=== PATIENT | female | born 1980 | race Caucasian/White ===

== ENCOUNTER 2017-01-27 10:06 | Emergency (ER) | payer MEDICAID ==
[~2017-01-27] VITALS: Ht 162.6 cm; Wt 66.0 kg
[2017-01-27 10:23] VITALS: Ht 162.6 cm; Wt 66.0 kg
--- NOTE | 2017-01-27 11:18 | ERD ---
ER Documentation Chief Complaint Date/Time DATE: 01/27/17 Chief Complaint Referred by MUNICIPAL ENGINEER for OB evaluation, ultrasound and laboratory testing HPI The patient is a 36-year-old female, A0, who presents to the Emergency Department for confirmation of viability. The patient reports that her last menstrual period was 11/23/2016, and she believes that she is approximately 8 weeks . This morning she presented to her MUNICIPAL ENGINEER's office, Dr. Cristin Gerardo, for routine evaluation. Ultrasound imaging was performed, but no heart tones were noted on ultrasound. The patient reports that approximately four weeks ago, while at a previous routine visit, she had an ultrasound performed that noted presence of a small sac, but no pole or yolk sac. When the ultrasound was performed today, she was noted to have the same findings, with no progression or further development. Therefore, she was referred to the ED for further evaluation, laboratory testing , ultrasound imaging for confirmation of viability. The patient denies dysuria, hematuria or flank pain. Denies vaginal bleeding or new vaginal discharge. Denies fevers, chills, nausea, vomiting, abdominal pain or pelvic pain. Denies headache, dizziness, weakness. ROS All systems reviewed and are negative except as per history of present illness. Allergies Allergies: Coded Allergies: No Known Allergy (Unverified , 01/27/17) PMhx/Soc Medical and Surgical Hx: pt denies Medical Hx History of Surgery: Yes (csection) Anesthesia Reaction: No Hx Neurological Disorder: No Hx Respiratory Disorders: No Hx Cardiac Disorders: No Hx Psychiatric Problems: No Hx Miscellaneous Medical Probl: No Hx Alcohol Use: No Hx Substance Use: No Hx Tobacco Use: No Smoking Status: Never smoker Physical Exam Vitals Vital Signs Date Time Temp Pulse Resp B/P Pulse Ox O2 Delivery O2 Flow Rate FiO2 01/27/17 13:39 99.7 70 16 122/52 100 Room Air 01/27/17 10:23 99.7 77 16 126/58 100 Physical Exam GENERAL: Well-developed, well-nourished, female, in no acute distress. HEENT: Head is normocephalic, atraumatic. No scleral pallor or icterus. Pupils equal, round and reactive to light. Conjunctiva pink. Moist mucous membranes. NECK: Supple. Full range of motion. RESPIRATORY: Lungs are clear to auscultation bilaterally. Equal breath sounds. Normal expiratory effort. CARDIOVASCULAR: Regular rate and rhythm. S1 and S2 normal. GASTROINTESTINAL: Abdomen is soft, non-tender, and non-distended. Positive bowel sounds. FLANK: No CVA tenderness. EXTREMITIES: No clubbing, cyanosis, or edema. Normal skin perfusion. Moving all extremities. Muscle tone is normal. No focal swelling or erythema. Distal pulses are palpable, 2+ bilaterally. Capillary refill is less than 2 seconds. NEUROLOGIC: The patient is alert, awake, and oriented x 3. No focal neurologic deficits. INTEGUMENT: Skin is intact. Warm and dry. No rashes, no petechiae present. PSYCHIATRIC: Cooperative; appropriate. Result Diagram: 01/27/17 1115 Results 24 hrs Laboratory Tests Test 01/27/17 11:15 Basophils # 0.110^3/ul Basophils % 0.9% Beta HCG, Quantitative 08488.0mIU/ml Eosinophils # 0.110^3/ul Eosinophils % 0.9% Hematocrit 41.6% Hemoglobin 13.8g/dl Lymphocytes # 1.810^3/ul Lymphocytes % 19.0% Mean Corpuscular Hemoglobin 26.5pg Mean Corpuscular Hemoglobin Concent 33.2g/dl Mean Corpuscular Volume 79.8fl Mean Platelet Volume 10.5fl Monocytes # 0.510^3/ul Monocytes % 5.6% Neutrophils # 6.810^3/ul Neutrophils % 73.2% Nucleated Red Blood Cells # 0.010^3/ul Nucleated Red Blood Cells % 0.0/100WBC Platelet Count 54514^3/UL Red Blood Count 5.2110^6/ul Red Cell Distribution Width 14.8% Urine Bilirubin NEGATIVE Urine Clarity CLEAR Urine Color LT. YELLOW Urine Glucose NEGATIVE% Urine Hemoglobin NEGATIVE Urine Ketones NEGATIVE Urine Leukocyte Esterase NEGATIVE Urine Nitrite NEGATIVE Urine Specific [place] <=1.005 Urine Total Protein NEGATIVE Urine Urobilinogen 0.2 E.U./dL Urine pH 5.5 White Blood Count 9.210^3/ul Procedures/MDM PROCEDURE: OBSTETRICAL ULTRASOUND WITH ENDOVAGINAL IMAGES CLINICAL INDICATION: confirm viability, positive test TECHNIQUE: Multiple sonographic images of the pelvis were obtained utilizing a transabdominal and endovaginal technique. The images were reviewed on a PACS workstation. COMPARISON: None. LMP: 11/23/2016 Gestational age by LMP: 9 weeks, 2 days FINDINGS: The uterus measures 10.3 x 6.7 x 8.9 cm. An irregular - appearing likely intrauterine gestational sac is noted with internal debris. Mean sac diameter is 3.21 cm and crown-rump length is 0.58 cm which would be consistent with a gestational age of 7 weeks, 3 days and an estimated date of delivery of 09/12/2017. No heart tones are detected. The right ovary measures 2.9 x 1.4 x 2.3 cm. The left ovary measures 3.6 x 2.0 x 2.0 cm. There is normal vascular flow in both ovaries. No significant ovarian lesions are seen. No significant pelvic free fluid is identified. IMPRESSION: A likely single intrauterine gestation is identified which would be consistent with a gestational age of 7 weeks, 3 days. The gestational sac appears somewhat irregular and has internal debris suggestive of early demise although a viable intrauterine gestation cannot be entirely excluded since the crown-rump length is less than 7 mm. Similarly, an ectopic cannot be entirely excluded. Short-term follow-up ultrasound and serial Beta HCG measurements are recommended for further evaluation. Bilateral ovaries and adnexa are unremarkable. Physician Nava Date Time Electronically viewed and signed by Physician Nava on 01/27/2017 12:06 CONSULTATION: 1310: MUNICIPAL ENGINEER: Dr. Farias: Discussed patient case with MUNICIPAL ENGINEER on- call, who states that patient's symptoms are likely most consistent with a failed . Recommends that the patient be discharged home to follow up with Dr. Gerardo for D&C as an outpatient. The possibility of threatened vs. early vs. failed was discussed with the patient and she was told to follow up with her MUNICIPAL ENGINEER within 2-3 days for re-evaluation. The patient complies and agrees with plan. MEDICAL DECISION MAKING: This is a 36-year-old female presenting to the Emergency Department by referral of MUNICIPAL ENGINEER for confirmation of viability. She had no significant abnormalities noted on physical examination. Differential diagnosis includes, but is not limited to, ectopic , molar , heterotopic , septic , missed , incomplete , inevitable , threatened , complete . Ultrasound imaging performed revealed an irregular - appearing likely intrauterine gestational sac is noted with internal debris, which would be consistent with a gestational age of 7 weeks, 3 days. However, no heart tones are detected. Presentation likely secondary to early demise/failed , however an early viable intrauterine gestation cannot be entirely excluded. After rest, the patient reports no new complaints. Upon review and interpretation of the patient's presentation and overall ER course, I believe the patient's symptoms are most consistent with threatened vs. early vs. failed . No indication for emergent surgery or hospitalization at this time. The patient patient is in stable condition and therefore can be discharged home with strict return precautions for signs of deteriorating or worsening condition. The patient is advised to follow up with her MUNICIPAL ENGINEER within 2-3 days for reevaluation and further management, or return to the ER sooner for any worsening symptoms. I shared all laboratory and diagnostic imaging studies with the patient at length and in great detail, and the patient verbally understands and agrees with the plan for further observation and care as an outpatient. At the time of discharge, all questions were answered. Departure Diagnosis: Primary Impression: Threatened Condition: Stable Patient Instructions: Possible Miscarriage (Threatened ) Additional Instructions: Follow up with your MUNICIPAL ENGINEER within 2-3 days for reevaluation and further management. You will likely need D&C for removal of . Return to the ED sooner for any new or worsening symptoms. YASMINE VILCHIS PA-C Jan 27, 2017 11:18 sooner for any new or worsening symptoms. YASMINE VILCHIS PA-C Jan 27, 2017 11:18
[2017-01-27 11:36] LABS: ADD SCAN DIFF NO
[2017-01-27 11:39] LABS: BASOPHIL # 0.1 10^3/ul (0.0-0.1); BASOPHILS % 0.9 % (0.0-2.0); EOSINOPHILS # 0.1 10^3/ul (0.0-0.5); EOSINOPHILS % 0.9 % (0.0-7.0); HEMATOCRIT 41.6 % (37.0-47.0); HEMOGLOBIN 13.8 g/dl (12.0-16.0); LYMPHOCYTES # 1.8 10^3/ul (0.8-2.9); MEAN CORPUSCULAR HEMOGLOBIN 26.5 pg (29.0-33.0); MEAN CORPUSCULAR HGB CONC 33.2 g/dl (32.0-37.0); MEAN CORPUSCULAR VOLUME 79.8 fl (82.0-101.0); MEAN PLATELET VOLUME 10.5 fl (7.4-10.4); MONOCYTE # 0.5 10^3/ul (0.3-0.9); MONOCYTES % 5.6 % (0.0-11.0); NEUTROPHIL # 6.8 10^3/ul (1.6-7.5); NEUTROPHILS % 73.2 % (39.0-77.0); PLATELET COUNT 301 10^3/UL (140-415); RED BLOOD COUNT 5.21 10^6/ul (4.20-5.40); RED CELL DISTRIBUTION WIDTH 14.8 % (11.5-14.5); WHITE BLOOD COUNT 9.2 10^3/ul (4.8-10.8)
[2017-01-27 11:54] LABS: ADD UMIC NO; URINE BILIRUBIN (Dip) NEGATIVE (NEGATIVE); URINE BLOOD (Dip) NEGATIVE (NEGATIVE); URINE COLOR LT. YELLOW (YELLOW); URINE GLUCOSE (Dip) NEGATIVE (NEGATIVE); URINE KETONES (Dip) NEGATIVE (NEGATIVE); URINE LEUKOCYTE ESTERASE (Dip) NEGATIVE (NEGATIVE); URINE NITRITE (Dip) NEGATIVE (NEGATIVE); URINE TOTAL PROTEIN (Dip) NEGATIVE (NEGATIVE); URINE UROBILINOGEN (Dip) 0.2 E.U./dL (0.1-1.0)
--- NOTE | 2017-01-27 12:06 | RADRPT ---
PROCEDURE: OBSTETRICAL ULTRASOUND WITH ENDOVAGINAL IMAGES CLINICAL INDICATION: confirm viability, positive test TECHNIQUE: Multiple sonographic images of the pelvis were obtained utilizing a transabdominal and endovaginal technique. The images were reviewed on a PACS workstation. COMPARISON: None. LMP: 11/23/2016 Gestational age by LMP: 9 weeks, 2 days FINDINGS: The uterus measures 10.3 x 6.7 x 8.9 cm. An irregular - appearing likely intrauterine gestational sac is noted with internal debris. Mean sa c diameter is 3.21 cm and crown-rump length is 0.58 cm which would be consistent with a gestational age of 7 weeks, 3 days and an estimated date of delivery of 09/12/2017. No heart tones are det ected. The right ovary measures 2.9 x 1.4 x 2.3 cm. The left ovary measures 3.6 x 2.0 x 2.0 cm. There is no rmal vascular flow in both ovaries. No significant ovarian lesions are seen. No significant pelvic free fluid is identified. IMPRESSION: A likely single intrauterine gestation is identified which would be consistent with a gestational ag e of 7 weeks, 3 days. The gestational sac appears somewhat irregular and has internal debris suggest miller of early demise although a viable intrauterine gestation cannot be entirely excluded since the crown-rump length is less than 7 mm. Similarly, an ectopic cannot be entirely exclud ed. Short-term follow-up ultrasound and serial Beta HCG measurements are recommended for further ev aluation. Bilateral ovaries and adnexa are unremarkable. RPTAT: EE Physician Nava Date Time Electronically viewed and signed by Sherman Owens Physician on 01/27/2017 12:06 /
[2017-01-27 13:39] VITALS: BP 122/52; PULSE 70; RESP 16; TEMP 99.7
== END 2017-01-27 13:40 | disposition home or self-care (01) ==
LOC: FTE 10:06
DX: O20.0 Threatened abortion (principal); Z3A.01 Less than 8 weeks gestation of pregnancy
CPT/HCPCS: 36415; 76801; 76817; 81003; 84702; 85025; 86900; 86901; 87086; Z7502